=== PATIENT | female | born 1975 | race African-American/Black ===

== ENCOUNTER 2019-08-07 10:39 | Emergency (ER) | payer OTHER ==
[~2019-08-07] VITALS: Ht 170.2 cm; Wt 93.0 kg
[~2019-08-07 10:39] MED LIST: FERR236T3 MT
[2019-08-07 11:01] VITALS: BP 133/81
[2019-08-07] MEDS ORDERED: ACETAMINOPHEN WITH CODEINE 300/30MG TABLET PO ONE (14:00)
== END 2019-08-07 14:10 | disposition home or self-care (01) ==
LOC: ER 10:39
DX: S33.5XXA Sprain of ligaments of lumbar spine, initial encounter (principal); M54.5 Low back pain; X58.XXXA Exposure to other specified factors, initial encounter; Y93.9 Activity, unspecified; Y92.9 Unspecified place or not applicable
CPT/HCPCS: 99282

== ENCOUNTER 2019-08-15 14:10 | Emergency (ER) | payer OTHER ==
[~2019-08-15] VITALS: Ht 167.6 cm; Wt 97.9 kg
[2019-08-15] MEDS ORDERED: LIDOCAINE 5% PATCH TOP STA (20:20)
[2019-08-15] MEDS ORDERED: ACETAMINOPHEN 500MG TABLET PO ONE (20:30)
[2019-08-15] MEDS ORDERED: KETOROLAC 30MG/ML VIAL IM ONE (20:30)
[2019-08-16 00:21] VITALS: BP 119/70
== END 2019-08-16 00:22 | disposition home or self-care (01) ==
LOC: ER 14:10
DX: M54.5 Low back pain (principal); G89.29 Other chronic pain
CPT/HCPCS: 96372; 99283; J1885